=== PATIENT | female | born 1930 | race Caucasian/White ===

== ENCOUNTER → 2016-09-17 | Outpatient (CLI) | payer MEDICARE, OTHER ==
[~2016-09-17] MED LIST: ATORVASTATIN; B-121000 MCG PO; BONIVA150 MG PO; CALCIUM 600MG+D1 TAB PO; CLARITIN 1010 MG/TAB PO; CLARITIN10 MG PO; COLACE 100100 MG/CAP PO; COUMADIN; COUMADIN 5MG5 MG/TAB PO; COZAAR 25MG25 MG/TAB PO; COZAAR25 MG PO; DEPAKOTE 125MG125 MG PO; LASIX 20MG TABL20 MG PO; LASIX20 MG PO; LIPITOR 10MG10 MG PO; MULTI VITAMINS1 TAB PO; NORCO 325 MG-7.1 TAB PO; SYNTHROID0.088 MG PO; SYNTHROID0.088 MG/T PO; THERAGRAN1 TA1 PO; VESICARE 5MG5 MG PO; VESICARE10 MG PO; VESICARE5 MG PO; ZOLOFT 100MG100 MG PO; ZOLOFT50 MG PO
== END ==
LOC: BHSO 10:39
DX: F31.81 Bipolar II disorder (principal)

== ENCOUNTER → 2016-10-17 | Outpatient (CLI) | payer MEDICARE, OTHER | LOC: BHSO 09:33 | DX: F31.81 Bipolar II disorder (principal) ==

== ENCOUNTER → 2016-12-30 | Outpatient (CLI) | payer MEDICARE, OTHER | LOC: BHSO 11:01 | DX: F31.81 Bipolar II disorder (principal) ==

== ENCOUNTER → 2017-04-04 | Outpatient (CLI) | payer MEDICARE, OTHER | LOC: BHSO 14:17 | DX: F31.81 Bipolar II disorder (principal) ==

== ENCOUNTER → 2017-09-08 | Outpatient (CLI) | payer MEDICARE, OTHER | LOC: BHSO 08:48 | DX: F31.81 Bipolar II disorder (principal) | CPT/HCPCS: G0463 ==

== ENCOUNTER → 2017-10-09 | Outpatient (CLI) | payer MEDICARE, OTHER | LOC: BHSO 10:06 | DX: F31.81 Bipolar II disorder (principal) | CPT/HCPCS: G0463 ==